=== PATIENT | female | born 1935 | race Caucasian/White ===

== ENCOUNTER → 2018-05-18 | Outpatient (CLI) | payer OTHER ==
[~2018-05-18] MED LIST: IOPAMIDOL (ISOVUE-300) 100 ML BTL ONE
== END ==
LOC: CIMAGING 10:15
PROVIDERS: ATTEND Family Medicine
DX: R22.1 Localized swelling, mass and lump, neck (principal); M54.2 Cervicalgia; R13.10 Dysphagia, unspecified; E03.9 Hypothyroidism, unspecified; I65.23 Occlusion and stenosis of bilateral carotid arteries; I25.10 Atherosclerotic heart disease of native coronary artery without angina pectoris
CPT/HCPCS: 70491; Q9967; 82565-PO

== ENCOUNTER 2018-07-01 06:27 | Observation (INO) | payer OTHER ==
--- NOTE | 2018-06-30 07:48 | PDHPUP ---
History & Physical Update H&P update statement: This history and physical update is based on an assessment of the patient which was completed after admission or registration (within 24 hours), but prior to the surgery/procedure. H&P update: H&P reviewed & patient examined, no change in patient's condition since H&P completed
[2018-07-01] MEDS ORDERED: BUPIVACAINE 0.25% 30 ML SDV ONE (06:31)
[2018-07-01] MEDS ORDERED: BUPIVACAINE/EPI 0.5% 30 ML SDV ONE (06:31)
[2018-07-01] MEDS ORDERED: ceFAZolin 2 GM/DEXTROSE 100 ML IV ONE (06:37)
[2018-07-01] MEDS ORDERED: DEXAMETHASONE 10 MG/ML VIAL IVP ONE (06:37)
[2018-07-01] MEDS ORDERED: LR 1,000 ML IV ONE (06:38)
[2018-07-01] MEDS ORDERED: LIDOCAINE 1% 2 ML INJ ID PRN (06:38)
[2018-07-01] MEDS ORDERED: LIDO/EPI 1% **for epidural** 30 ML SDV ONE (07:18)
[2018-07-01] MEDS ORDERED: MIDAZOLAM 2 MG/2 ML VIAL IVP ONE (07:28)
[2018-07-01] MEDS ORDERED: MIDAZOLAM 2 MG/2 ML VIAL ONE (07:29)
--- NOTE | 2018-07-01 07:30 | PDANEPAE ---
ANE History of Present Illness tongue lession ANE Past Medical History - Cardiovascular History Hx Hypertension: Yes Hx Arrhythmias: No Hx Chest Pain: No Hx Coronary Artery / Peripheral Vascular Disease: No Hx CHF / Valvular Disease: No Hx Palpitations: No - Pulmonary History Hx COPD: No Hx Asthma/Reactive Airway Disease: No Hx Recent Upper Respiratory Infection: No Hx Oxygen in Use at Home: Yes O2 in Use at Home (L/minute): 2L @ night Hx Sleep Apnea: Yes Sleep Apnea Screening Result - Last Documented: Positive Pulmonary History Comment: sleep apnea no CPAP - Neurologic History Hx Cerebrovascular Accident: No Hx Seizures: No Hx Dementia: No - Endocrine History Hx Diabetes: No - Renal History Hx Renal Disorders: Yes Renal History Comment: Bladder incontinence - Liver History Hx Hepatic Disorders: No - Neurological & Psychiatric Hx Hx Neurological and Psychiatric Disorders: No - Cancer History Hx Cancer: No Cancer History Comment: tongue ca. skin ca - Congenital Disorder History Hx Congenital Disorders: No - GI History Hx Gastrointestinal Disorders: Yes Gastrointestinal History Comment: GERD - Chronic Pain History Chronic Pain: No - Surgical History Prior Surgeries: cholecystectomy. tonsillectomy. appendectomy. cardiac stent x7 ANE Review of Systems Review of Systems: - Exercise capacity METS (RN): 3 METS ANE Patient History - Allergies Allergies/Adverse Reactions: Tetanus Vaccines and Toxoid Allergy (Verified 06/17/18 13:00) - Home Medications Home Medications: Aspirin EC [Aspirin EC 81 mg (*)] 81 mg PO DAILY 06/17/18 [Last Taken 1 Week Ago ~06/24/18] Atorvastatin Calcium [Lipitor 40 mg (*)] 40 mg PO HS 06/17/18 [Last Taken ] Clopidogrel Bisulfate [Plavix (*)] 75 mg PO DAILY 06/17/18 [Last Taken 06/25/18] Herbals/Supplements -Info Only 1 ea PO AD 06/17/18 [Last Taken 07/01/18] Levothyroxine [Synthroid 50 mcg (*)] 50 mcg PO DAILY06 06/17/18 [Last Taken 05/11] Metoprolol Tartrate [Lopressor 25 mg (*)] 12.5 mg PO BID 06/17/18 [Last Taken ] Ranitidine HCl [Zantac] 150 mg PO BID 06/17/18 [Last Taken 07/01/18] Sertraline HCl [Zoloft 50mg (*)] 50 mg PO DAILY 06/17/18 [Last Taken 06/29/18] - NPO status NPO Since - Liquids (Date): 07/01/18 NPO Since - Liquids (Time): 04:30 NPO Since - Solids (Date): 06/30/18 NPO Since - Solids (Time): 18:00 - Smoking Hx Smoking Status: Never smoked ANE Labs/Vital Signs - Vital Signs Blood Pressure: 138/67 Heart Rate: 62 Respiratory Rate: 14 O2 Sat (%): 91 Height: 157.48 cm Weight: 97.976 kg ANE Physical Exam - Airway Neck exam: FROM Mallampati Score: Class 2 Mouth exam: normal dental/mouth exam - Pulmonary Pulmonary: no respiratory distress - Cardiovascular Cardiovascular: regular rate and rhythym - ASA Status ASA Status: III ANE Anesthesia Plan Anesthesia Plan: general endotracheal anesthesia
[2018-07-01] MEDS ORDERED: PROPOFOL 200 MG/20 ML VIAL ONE (07:32)
[2018-07-01] MEDS ORDERED: fentaNYL 100 MCG/2 ML INJ ONE ×3 (07:32→09:39)
[2018-07-01] MEDS ORDERED: ONDANSETRON 4 MG/2 ML VIAL ONE (08:00)
[2018-07-01] MEDS ORDERED: DEXAMETHASONE 4 MG/ML VIAL ONE (08:00)
[2018-07-01] MEDS ORDERED: ROCURONIUM 50 MG/5 ML VIAL ONE (08:00)
[2018-07-01] MEDS ORDERED: PROMETHAZINE HCL 25 MG/ML INJ IVP PRN (08:10)
[2018-07-01] MEDS ORDERED: NALOXONE HCL 0.4 MG/ML INJ IVP PRN (08:10)
[2018-07-01] MEDS ORDERED: ONDANSETRON 4 MG/2 ML VIAL IVP PRN (08:10)
[2018-07-01] MEDS ORDERED: fentaNYL 100 MCG/2 ML INJ IVP PRN (08:10)
--- NOTE | 2018-07-01 09:03 | POSTANESTH ---
Post Anesthetic Evaluation Cardiovascular Status: Normal, Stable Respiratory Status: Normal, Stable Level of Consciousness/Mental Status: Can Participate in Eval Pain Control: Adequate, Prn Tx Ordered Nausea/Vomiting Control: Adequate, Prn Tx Ordered Complications Possibly Related to Anesthesia: None Noted
--- NOTE | 2018-07-01 09:15 | GOP ---
DATE OF OPERATION: 07/01/2018 SURGEON: Heri Blanco MD TIRE CORD WEAVER: KIANNA Mendez. ANESTHESIA: General endotracheal. 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 PROCEDURE PERFORMED: Left lateral hemiglossectomy. FINDINGS: 2 cm x 1.5 cm squamous cell carcinoma with excision as above. SPECIMENS: 1. Permanent section of the primary tumor sent with a stitch placed anteriorly. 2. Another permanent section of a deep margin sent. 1. Three frozens as above. 3. ESTIMATED BLOOD LOSS: 10 mL. DESCRIPTION OF PROCEDURE: The patient was placed in a supine position and orally endotracheally intu bated. She had a 2 cm x 1.5 cm left lateral tongue lesion. Biopsy had previously shown it to be squ amous cell carcinoma. HPV negative. She has seen Radiation Oncology. PET scanning was negative for any uptake in the necks. She had some area of leukoplakia on the tongue as well more posteriorly. We marked an ellipse around the primary tumor as well as the leukoplakia more posteriorly and anterio rly. In all, our ellipse was 8 cm x 4 cm. We injected with 1% lidocaine with 1:200,000 epinephrine. She was sterilely draped. We came around the ellipse sharply with a 15 blade scalpel. We came und erneath the tumor and tried to make sure we had a good clear deep margin as well. I did try to have a good 1 cm margin peripherally around the tumor. I sent this initial specimen in its entirety in an ellipse form with a stitch placed at the anterior margin. I then took a deep specimen from the musc le of the tongue and placed the suture deep and sent this for frozen as well as a medial margin and l ateral margin with a stitch anterior on both of those specimens. Her frozen section margins were arielle ar. I did take another deep specimen for permanent section with the suture placed deeply. Hemostasi s was achieved with cautery. The excision site was closed with 3-0 Vicryl. She tolerated the proced ure well and was in good condition at the end of the procedure. /[id number]/MODL
[2018-07-01] MEDS ORDERED: HYDROmorphONE/DILAUDID 1 MG/ML INJ ONE (09:39)
[2018-07-01] MEDS: HYDROmorphONE/DILAUDID 1 MG/ML INJ IVP PRN ×2 (09:40→09:50)
[2018-07-01] MEDS ORDERED: D5W 1/2 NS 1,000 ML IV SCH (09:45)
[2018-07-01] MEDS: ONDANSETRON 4 MG/2 ML VIAL IVP PRN ×2 (10:53→15:47)
--- NOTE | 2018-07-01 15:34 | SOAPPROG ---
SOAP Progress Note Assessment/Plan: Assessment: Pt doing well. Starting to tolerate PO. Pain controlled. Vitals stable. Appreciate hospitalist consult for HTN, CAD management while in house. They will plan to see. No bleeding. Tongue moving well. Pt evaluated by Dr. Blanco. Plans for d/c tomorrow. Plan: 07/01/18 15:31 Objective: Vital Signs Temp Pulse Resp BP Pulse Ox 36.4 C 65 16 153/77 H 96 07/01/18 11:43 07/01/18 14:07/01/18 14:09 07/01/18 14:09 07/01/18 14:09 06/30/18 07/01/18 07/02/18 05:59 05:59 05:59 Intake Total 1420 Balance 1420 ICD10 Worksheet Patient Problems: Problems Problem Status Onset Tongue cancer Acute - ICD10 Problem Qualifiers (1) Tongue cancer
[2018-07-01] MEDS: HYDROCOD/APAP 7.5/325 IN 15ML UDCUP PO PRN ×2 (15:47→20:29)
[2018-07-01] MEDS ORDERED: hydrALAZINE 20 MG/ML VIAL IVP PRN (16:44)
[2018-07-01] MEDS ORDERED: Herbals/Supplements -Info Only PO SCH (17:00)
--- NOTE | 2018-07-01 17:03 | PDHOSCONS ---
History and Physical - Chief Complaint HTN - History of Present Illness we have been asked by Dr. Ramos to provide consultation for this 83 yo female with hx of HTN, AMINATA, and CAD. She has a hx of SCC of the left tongue and had left lateral hemiglossectomy today. Post op she is doing well, tolerating food, and VSS. Her O2 needs are noted to require 4L. She reports a hx of nocturnal hypoxemia requiring 2 L at night but thinks she likely needs it during the day but has refused wearing her O2 during the day. She does not feel SOB and she denies cp, palpitations, or leg swelling. Her pain is overall well controlled. PMHx: CAD, HTN, HLD, GERD, SCC of tongue PSHx: appendectomy, cataract, cholecystectomy, tubal ligation SocHx: , non smoker FmHx: + CHF History Information - Allergies/Home Medication List Allergies/Adverse Reactions: Tetanus Vaccines and Toxoid Allergy (Verified 07/01/18 11:05) Other-Enter Comments Home Medications: Aspirin EC [Aspirin EC 81 mg (*)] 81 mg PO DAILY 06/17/18 [Last Taken 1 Week Ago ~06/24/18] Atorvastatin Calcium [Lipitor 40 mg (*)] 40 mg PO HS 06/17/18 [Last Taken ] Clopidogrel Bisulfate [Plavix (*)] 75 mg PO DAILY 06/17/18 [Last Taken 06/25/18] Herbals/Supplements -Info Only 1 ea PO AD 06/17/18 [Last Taken 07/01/18] Levothyroxine [Synthroid 50 mcg (*)] 50 mcg PO DAILY06 06/17/18 [Last Taken 05/11] Metoprolol Tartrate [Lopressor 25 mg (*)] 12.5 mg PO BID 06/17/18 [Last Taken ] Ranitidine HCl [Zantac] 150 mg PO BID 06/17/18 [Last Taken 07/01/18] Sertraline HCl [Zoloft 50mg (*)] 50 mg PO DAILY 06/17/18 [Last Taken 06/29/18] I have personally reviewed and updated: medical history, social history - Social History Smoking Status: Never smoked Review of Systems Review of Systems: ROS: 10pt was reviewed & negative except for what was stated in HPI & below Physical Exam Physical Exam: Temp Pulse Resp BP Pulse Ox 36.4 C 65 16 153/77 H 96 07/01/18 11:43 07/01/18 14:09 07/01/18 14:09 07/01/18 14:09 07/01/18 14:09 O2 (L/minute) 4 Constitutional: no apparent distress Eyes: PERRL, EOMI Ears, Nose, Mouth, Throat: moist mucous membranes, other (s/p hemiglossectomy left sided) Cardiovascular: regular rate and rhythym, No edema Respiratory: no respiratory distress, reduced air movement Gastrointestinal: normoactive bowel sounds, soft, non-tender abdomen Skin: warm Neurologic: AAOx3 Psychiatric: interacting appropriately, not anxious, not encephalopathic, thought process linear Lymph, Heme, Immunologic: No petechiae Assessment & Plan Assessment: #SCC of left tongue s/p Hemiglossectomy of Left Lateral tongue -post op care per surgery -pain mgmt per surgery, pain well controlled at this time #Acute on Chronic Hypoxemia -reports nocturnal hypoxemia but she may actually need supplemental O2 during the day -Provide IS -Stop IVF -If still hypoxic tomorrow, consider CXR #HTN -well controlled currently -cont home meds, Metoprolol -Hydralazine IV as needed #CAD -holding her Plavix and Aspirin #AMINATA, has not tolerated CPAP #HLD, home meds SCD Pt seen and examined. Overall doing well post op. Hypoxemia per above. Med rec completed. Holding Aspirin and Plavix. Will stop IVF per above, tolerating PO well at this point. Thank you for this consult, we will follow along with you
[2018-07-01] MEDS: FAMOTIDINE 20 MG TAB PO SCH (20:28)
[2018-07-01] MEDS: METOPROLOL TARTRATE 25 MG TAB PO SCH (20:28)
[2018-07-01] MEDS ORDERED: ATORVASTATIN CALCIUM 40 MG TAB PO SCH (21:00)
[2018-07-02 05:00] LABS: PLATELET COUNT 239 10^3/uL (150-400)
[2018-07-02] MEDS: HYDROCOD/APAP 7.5/325 IN 15ML UDCUP PO PRN ×2 (05:33→10:16)
[2018-07-02] MEDS ORDERED: LEVOTHYROXINE 50 MCG TAB PO SCH (06:00)
--- NOTE | 2018-07-02 07:20 | PDDCSUM ---
Discharge Summary Discharge Summary: Doing well. Appreciate hospitalist input. Sutures intact. Minimal swelling. Discharge home. She has scripts on chart for amoxicillin, pain meds, peridex. F/u Bella one week.
[2018-07-02] MEDS ORDERED: SERTRALINE HCL 50 MG TAB PO SCH (09:00)
[2018-07-02 09:35] VITALS: BP 124/64
[2018-07-02] MEDS: FAMOTIDINE 20 MG TAB PO SCH (10:08)
[2018-07-02] MEDS: METOPROLOL TARTRATE 25 MG TAB PO SCH (10:08)
--- NOTE | 2018-07-02 10:30 | HOSPPROG ---
Hospitalist Progress Note Assessment/Plan: #SCC of left tongue s/p Hemiglossectomy of Left Lateral tongue -post op care per surgery -pain mgmt per surgery, pain well controlled at this time #Acute on Chronic Hypoxemia - Patient appears to be in no respiratory distress this morning with 02 sats >90 % on room air when I examined patient - If hypoxia recurs, consider CXR, however lungs CTA b/l this AM - Consider checking 02 sats with ambulation to see if patient qualifies for home 02 (if 02 sat drops <88% with ambulation) - Continue IS, IVF were d/c yesterday #HTN -well controlled currently -cont home meds, Metoprolol -Hydralazine IV as needed #CAD -holding her Plavix and Aspirin #AMINATA, has not tolerated CPAP #HLD, home meds SCD Thank you for this consult, we will follow along with you Subjective: Patient reports no SOB this morning Objective: Vital Signs Temp Pulse Resp BP Pulse Ox 36.4 C 53 L 12 124/64 H 95 07/02/18 09:33 07/02/18 09:33 07/02/18 09:33 07/02/18 09:33 07/02/18 09:33 Laboratory Results 07/02/18 04:50 07/02/18 04:50 07/01/18 07/02/18 07/03/18 05:59 05:59 05:59 Intake Total 3022 Balance 3022 - Physical Exam Constitutional: no apparent distress Eyes: PERRL Ears, Nose, Mouth, Throat: moist mucous membranes Cardiovascular: regular rate and rhythym Respiratory: no respiratory distress, clear to auscultation Gastrointestinal: normoactive bowel sounds Skin: warm Musculoskeletal: No asymmetric calves Neurologic: AAOx3 Psychiatric: interacting appropriately Lymph, Heme, Immunologic: No ecchymoses ICD10 Worksheet Patient Problems: Problems Problem Status Onset Tongue cancer Acute
--- NOTE | 2018-07-02 16:38 | ASMTLACE ---
NINA Length of stay for Answers: 1 day current admission Acuity / Level of Answers: No Care: Did the patient have an inpatient admission? Comorbidities - select Answers: Coronary Artery Disease all that apply Diabetes (uncontrolled or controlled) Previous myocardial infarction Other Notes: HTN; GERD # of Emergency department Answers: 0 visits in the last 6 months Social determinants Answers: Mental health diagnosis (anxiety, depression, pers onality disorders, etc.) Score: 9 Date Signed: 07/02/2018 04:37 PM Electronically Signed By:Kimmie Mcdonald RN
--- NOTE | 2018-07-02 16:56 | ASDISCHSUM ---
Discharge Information Plan Status:Home with No Needs Medically Cleared to Leave:07/02/2018 Discharge Date:07/02/2018 12:33 PM CM D/C Disposition:Home, Routine, Self-Care ADT D/C Disposition:Home, Routine, Self-Care Projected Discharge Date:07/02/2018 12:33 PM Transportation at D/C:Family Discharge Delay Reason: Follow-Up Date:07/02/2018 12:33 PM Discharge Slot:2 - 12:01 pm - 18:00 pm Final Diagnosis:s/p hemiglossectomy of left lateral tongue for SCC, acute on chronic hypoxemia, HTN, CAD, AMINATA, HLD Placement Information Patient Contact Information Contact Name:SAVANNAH Relationship:Daughter Address:[address] Home Phone: City:[place] Alternate Phone: [facility]/Zip Code:[place] [address] Email: Financial Information Financial Class:Medicare Advantage Plans Primary Plan Desc:FIOR MEDICARE ADV Primary Plan Number:[id number] Secondary Plan Desc: Secondary Plan Number: Assessment Information LACE LACE Length of stay for Answers: 1 day current admission Acuity / Level of Answers: No Care: Did the patient have an inpatient admission? Comorbidities - select Answers: Coronary Artery Disease all that apply Diabetes (uncontrolled or controlled) Previous myocardial infarction Other Notes: HTN; GERD # of Emergency department Answers: 0 visits in the last 6 months Social determinants Answers: Mental health diagnosis (anxiety, depression, pers onality disorders, etc.) Score: 9 Date Signed: 07/02/2018 04:37 PM Electronically Signed By:Kimmie Mcdonald RN [facility] Progress Note CM Note CM Note Notes: Reviewed chart, spoke with RUMA Jacob regarding discharge plan of care, pt's progress. Pt s/p hemiglossectomy of left lateral tongue. Per Nidia, pt to discharge home with family support and no identified needs. Met with pt and pt's dghtr. IM/LEONG forms signed, copies placed in chart. Pt with several questions re LEONG; questions answered. Pt to follow up as directed. CM available for any further issues or concerns. Discharge Plan: Home independently with family support Date Signed: 07/02/2018 04:54 PM Electronically Signed By:Kimmie Mcdonald RN Intervention Information Intervention Type:*IM-Signed Date of Service:07/02/2018 04:39 PM Patient Type:Observation Staff Member:RUMA Mcdonald Taylor Hours: Discipline: Severity: Comment: Intervention Type:*LEONG-Signed Date of Service:07/02/2018 04:39 PM Patient Type:Observation Staff Member:RUMA Mcdonald Taylor Hours: Discipline: Severity: Comment: Intervention Type:Education Family/Patient Date of Service:07/02/2018 04:55 PM Patient Type:Observation Staff Member:RUMA Mcdonald Taylor Hours:0.5 Discipline: Severity: Comment:Education on LEONG form provided
== END 2018-07-02 12:33 | disposition home or self-care (01) ==
LOC: F3E 06:27 → F1N 10:07
PROVIDERS: ADMIT Otolaryngology; ATTEND Otolaryngology
PROC: 0CT Mouth and Throat, Resection (ICD-10-PCS; principal; 2018-07-01 07:30)
DX: C02.9 Malignant neoplasm of tongue, unspecified (principal); R09.02 Hypoxemia; I25.10 Atherosclerotic heart disease of native coronary artery without angina pectoris; I10 Essential (primary) hypertension; E78.5 Hyperlipidemia, unspecified; G47.33 Obstructive sleep apnea (adult) (pediatric); K21.9 Gastro-esophageal reflux disease without esophagitis; R73.02 Impaired glucose tolerance (oral); E03.9 Hypothyroidism, unspecified; E66.9 Obesity, unspecified; Z68.39 Body mass index [BMI] 39.0-39.9, adult; Z79.82 Long term (current) use of aspirin; Z79.02 Long term (current) use of antithrombotics/antiplatelets; Z82.49 Family history of ischemic heart disease and other diseases of the circulatory system; Z95.5 Presence of coronary angioplasty implant and graft
CPT/HCPCS: 41120; 88305; 88309; 88331; G0378; J0690; J1100; J1170; J2250; J2270; J2405; J2704; J3010